=== PATIENT | male | born 1930 | race Caucasian/White ===

== ENCOUNTER 2017-03-31 00:09 | Emergency (ER) | payer OTHER ==
[~2017-03-31] VITALS: Ht 175.3 cm; Wt 75.0 kg
[~2017-03-31 00:09] MED LIST: ACET-857 PO; BACL10TA PO; CHOL3000 PO; CYAN500T46 PO; DILT300C43 PO; GLYB5TAB PO; HYDR100T7 PO; INSU100I15 SC; LEVO75TA5 PO; METF500T4 PO; METO25TA4 PO; TAMS-14 PO; [UNRECOGNIZED DRUG - CODE] PO
[2017-03-31 00:28] VITALS: Ht 175.3 cm; Wt 75.0 kg
--- NOTE | 2017-03-31 01:28 | ERD ---
ER Documentation Chief Complaint Date/Time DATE: 03/31/17 TIME: 01:27 Chief Complaint GLF ON RUG, SEVERE SKIN TEAR TO LEFT ARM DENIES KO. HPI This is a 86-year-old male who had a ground-level fall was secondary to his left arm. Denies any head trauma. Denies any loss of consciousness. Denies any fevers or chills. Denies any nausea vomiting. Denies any other current complaints. ROS All systems reviewed and are negative except as per history of present illness. Medications Home Meds Reported Medications Cyanocobalamin* (Vitamin B12*) 500 Mcg Tab, 500 MCG PO DAILY 10/24/12 Cholecalciferol (Vitamin D3) 3,000 Unit Tablet, 2000 INTLU PO DAILY 10/24/12 Insulin Glargine,Hum.rec.anlog (Lantus Solostar) 100 Units/Ml Pen, 15 UNITS SC PM Y 10/24/12 Insulin Glargine,Hum.rec.anlog (Lantus Solostar) 100 Units/Ml Pen, 15 SC AM 10/24/12 Metformin Hcl* (Metformin Hcl*) 500 Mg Tablet, 500 MG PO BID 10/24/12 Levothyroxine Sodium* (Levothyroxine Sodium*) 75 Mcg Tablet, 75 MCG PO DAILY 10/24/12 Acetaminophen (Tylenol Arthritis) 650 Mg Tablet.sa, 650 MG PO Q4 Y 10/24/12 Baclofen* (Baclofen*) 10 Mg Tablet, 10 MG PO BID Y 10/24/12 Diltiazem Hcl (Diltiazem Er) 300 Mg Capsule.sa, 300 MG PO DAILY 01/09/11 Hydralazine Hcl* (Hydralazine Hcl*) 100 Mg Tablet, 100 MG PO BID 01/09/11 Glyburide* (Diabeta*) 5 Mg Tablet, 10 MG PO BID 01/09/11 Tamsulosin Hcl* (Flomax*) 0.4 Mg Cap.sr.24h, 0.4 MG PO DAILY 01/09/11 Ranitidine Hcl* (Acid Bumper Machine Operator*) 150 Mg Tablet, 150 MG PO BID 01/09/11 Metoprolol Tartrate* (Lopressor*) 25 Mg Tablet, 25 MG PO BID 01/09/11 Allergies Allergies: Coded Allergies: No Known Allergies (Verified Allergy, Mild, 03/31/17) PMhx/Soc History of Surgery: Yes (HERNIA, NEPHRECTOMY) Anesthesia Reaction: No Hx Neurological Disorder: No Hx Respiratory Disorders: No Hx Cardiac Disorders: Yes (HTN) Hx Psychiatric Problems: No Hx Miscellaneous Medical Probl: Yes (neurogenic bladder, hypoplastic kidney, CKD, htn heart dse, hypothyroidism) Hx Alcohol Use: No (occasionally, 2011 - beer) Hx Substance Use: No Hx Tobacco Use: No (2009) Smoking Status: Former smoker Physical Exam Vitals Vital Signs Date Time Temp Pulse Resp B/P Pulse Ox O2 Delivery O2 Flow Rate FiO2 03/31/17 00:28 98.7 102 18 169/81 93 Physical Exam Const: [] Head: Atraumatic Eyes: Normal Conjunctiva ENT: Normal External Ears, Nose and Mouth. Neck: Full range of motion..~ No meningismus. Resp: Clear to auscultation bilaterally Cardio: Regular rate and rhythm, no murmurs Abd: Soft, non tender, non distended. Normal bowel sounds Skin: Multiple skin tears noted on left arm. No bony deformity. No active bleeding. Back: No midline or flank tenderness Ext: No cyanosis, or edema Neur: Awake and alert Psych: Normal Mood and Affect Results 24 hrs Current Medications Medications (Trade) Dose Ordered Sig/Scotty Route PRN Reason Start Time Stop Time Status Last Admin Dose Admin Diphtheria/ Tetanus/Acell Pertussis (Adacel) 0.5 ml ONCE ONCE IM* 03/31/17 01:30 03/31/17 01:31 Ibuprofen (Motrin) 400 mg ONCE ONCE PO 03/31/17 01:30 03/31/17 01:31 Lidocaine (Xylocaine) 1 applic ONCE TOP 03/31/17 01:30 Procedures/MDM Medical decision-makin-year-old male with multiple skin tears. Wounds cleaned and sterilely dressed. Given Adacel. Discharged home with Keflex for antibiotic coverage. Along with bacitracin. Departure Diagnosis: Primary Impression: Skin tear Condition: Stable LUIS EDUARDO SHANKAR March 31, 2017 01:28
[2017-03-31] MEDS ORDERED: IBUPROFEN 200 MG TAB PO ONE (01:30)
[2017-03-31] MEDS ORDERED: LIDOCAINE 2% JELLY 30 ML TOP SCH (01:30)
[2017-03-31] MEDS ORDERED: DIPHTH/TET/ACEL PERTUSS (ADULT) 0.5 ML VIAL IM* ONE (01:30)
[2017-03-31] MEDS ORDERED: LEVO88TA3 PO (01:35)
[2017-03-31] MEDS ORDERED: PANT40TA4 PO (01:36)
[2017-03-31] MEDS ORDERED: AMLO-147 PO (01:37)
[2017-03-31] MEDS ORDERED: BACITUD TOP (01:43)
[2017-03-31] MEDS ORDERED: CEPH-443 PO (01:43)
[2017-03-31 01:53] VITALS: BP 159/87; PULSE 88; RESP 20; TEMP 98.6
== END 2017-03-31 01:51 | disposition home or self-care (01) ==
LOC: E/R 00:09
DX: S41.112A Laceration without foreign body of left upper arm, initial encounter (principal); I12.9 Hypertensive chronic kidney disease with stage 1 through stage 4 chronic kidney disease, or unspecified chronic kidney disease; N18.9 Chronic kidney disease, unspecified; E03.9 Hypothyroidism, unspecified; E11.9 Type 2 diabetes mellitus without complications; W18.39XA Other fall on same level, initial encounter; Y92.9 Unspecified place or not applicable; Z23 Encounter for immunization; Z79.4 Long term (current) use of insulin; Z79.84 Long term (current) use of oral hypoglycemic drugs; Z87.891 Personal history of nicotine dependence
CPT/HCPCS: 90471; 90715